=== PATIENT | female | born 1960 | race Caucasian/White ===

== ENCOUNTER 2017-12-22 15:35 | Outpatient (CLI) | payer MEDICAID ==
[~2017-12-22] VITALS: Ht 176.5 cm; Wt 112.0 kg
[2017-12-22] MEDS ORDERED: albuterol 2.5 MG/3 ML nebule ONE (16:13)
[2017-12-22] MEDS ORDERED: albuterol 2.5 MG/3 ML nebule NEB ONE (16:15)
== END 2017-12-22 23:59 | disposition home or self-care (01) ==
LOC: RT 15:35
PROVIDERS: ATTEND Family Medicine
DX: R06.02 Shortness of breath (principal); R06.09 Other forms of dyspnea; Z87.891 Personal history of nicotine dependence
CPT/HCPCS: 94060; 94640; 94729; 94760

== ENCOUNTER 2018-02-15 11:31 | Outpatient (CLI) | payer MEDICAID ==
[2018-02-15] MEDS ORDERED: iohexol 300mg/ml 100ml inj. ONE (11:34)
== END 2018-02-15 23:59 | disposition home or self-care (01) ==
LOC: 64 CT 11:31
PROVIDERS: ATTEND Internal Medicine
DX: M25.461 Effusion, right knee (principal); M79.89 Other specified soft tissue disorders
CPT/HCPCS: 73701; J7030; Q9967